=== PATIENT | male | born 1945 | race Caucasian/White ===

== ENCOUNTER → 2016-10-22 | Outpatient (CLI) | payer MEDICARE, OTHER | DX: I20.9 Angina pectoris, unspecified (principal); I35.8 Other nonrheumatic aortic valve disorders; I34.8 Other nonrheumatic mitral valve disorders | CPT/HCPCS: ECHO; 78452; 93017; 93306; A9502; J2785 ==

== ENCOUNTER → 2021-01-06 | Outpatient (CLI) | payer MEDICARE, OTHER ==
[~2021-01-06] MED LIST: ALLOPURINOL100 MG PO; ASPIR-LOW81 MG PO; DITROPAN 5 MG TA5 MG PO; GLUCOSAMINE HC500 MG PO; LIPITOR TAB 1010 MG PO; NAPROXEN500 MG PO; NEURONTIN800 MG PO; PLETAL 100 MG100 MG PO; ULTRAM50 MG PO; VITAMIN D250000 UNIT PO
== END ==
LOC: EXRD 09:36
DX: R91.1 Solitary pulmonary nodule (principal)
CPT/HCPCS: 71046

== ENCOUNTER 2021-04-01 11:17 | Inpatient (IN) | payer MEDICARE, OTHER ==
[~2021-04-01] VITALS: Ht 180.3 cm; Wt 90.7 kg
[~2021-04-01 11:17] MED LIST changes: -LIPITOR TAB 1010 MG PO; -NEURONTIN800 MG PO
[2021-04-01] MEDS ORDERED: DEXAMETHASONE6 MG PO (11:38)
[2021-04-01 12:58] LABS: HEMOGLOBIN 13.2 gm/dl (14.0-17.5); RED BLOOD COUNT 4.46 M/UL (4.20-5.50); WHITE BLOOD COUNT 4.8 K/UL (4.5-11.0)
[2021-04-01 13:21] LABS: BUN/CREATININE RATIO 19 (0-10)
[2021-04-02 04:20] LABS: RED BLOOD COUNT 4.36 M/UL (4.20-5.50)
[2021-04-02 04:26] LABS: WHITE BLOOD COUNT 3.5 K/UL (4.5-11.0)
[2021-04-02 04:42] LABS: BUN/CREATININE RATIO 22 (0-10)
[2021-04-02] MEDS ORDERED: NEURONTIN800 MG PO (06:52)
[2021-04-02] MEDS ORDERED: LIPITOR TAB 1010 MG PO (06:52)
[2021-04-03 02:31] LABS: RED BLOOD COUNT 4.34 M/UL (4.20-5.50)
[2021-04-03 02:32] LABS: WHITE BLOOD COUNT 9.8 K/UL (4.5-11.0)
[2021-04-03 03:12] LABS: BUN/CREATININE RATIO 23 (0-10)
[2021-04-03] MEDS ORDERED: MEDROL4 MG PO (10:06)
== END 2021-04-03 14:49 | disposition home or self-care (01) | DRG 177 ==
LOC: ER1 11:17 → CDU 17:54 → M/S 04-02 13:05
PROVIDERS: Emergency Medicine; ADMIT Internal Medicine
PROC: XW033E5 Introduction of Remdesivir Anti-infective into Peripheral Vein, Percutaneous Approach, New Technology Group 5 (ICD-10-PCS; principal; 2021-04-01)
PROC: 3E0333Z Introduction of Anti-inflammatory into Peripheral Vein, Percutaneous Approach (ICD-10-PCS; 2021-04-01)
PROC: XW033G6 Introduction of REGN-COV2 Monoclonal Antibody into Peripheral Vein, Percutaneous Approach, New Technology Group 6 (ICD-10-PCS; 2021-04-01)
PROC: 8E0ZXY6 Isolation (ICD-10-PCS; 2021-04-01)
DX: U07.1 COVID-19 (principal); J12.82 Pneumonia due to coronavirus disease 2019; T78.2XXA Anaphylactic shock, unspecified, initial encounter; M19.90 Unspecified osteoarthritis, unspecified site; I10 Essential (primary) hypertension; J43.9 Emphysema, unspecified; Z79.82 Long term (current) use of aspirin
CPT/HCPCS: 36415; 36600; 71045; 80048; 80053; 82803; 83690; 83735; 84100; 84132; 85025; 85027; 86140; 94760; 99285; G0378; J0171; J1100; J1200; J1650; J2930; J7030; Q9967; U0002

== ENCOUNTER → 2021-04-16 | Emergency (ER) | payer MEDICARE, OTHER ==
[~2021-04-16] MED LIST changes: +DEXAMETHASONE6 MG PO; +LIPITOR TAB 1010 MG PO; +MEDROL4 MG PO; +NEURONTIN800 MG PO
[2021-04-16 09:27] LABS: HEMOGLOBIN 11.7 gm/dl (14.0-17.5); RED BLOOD COUNT 3.93 M/UL (4.20-5.50); WHITE BLOOD COUNT 6.8 K/UL (4.5-11.0)
[2021-04-16 09:56] LABS: BUN/CREATININE RATIO 12 (0-10)
== END | disposition home or self-care (01) ==
LOC: ER1 08:08
PROVIDERS: Physician Assistant
DX: K92.1 Melena (principal); D64.9 Anemia, unspecified; Z86.73 Personal history of transient ischemic attack (TIA), and cerebral infarction without residual deficits; Z85.3 Personal history of malignant neoplasm of breast
CPT/HCPCS: 80053; 82270; 85025; 85610; 86850; 86900; 86901; 96374; 99283; C9113

== ENCOUNTER → 2021-06-05 | Outpatient (CLI) | payer MEDICARE, OTHER | LOC: RAD 09:00 | DX: D50.9 Iron deficiency anemia, unspecified (principal); R93.3 Abnormal findings on diagnostic imaging of other parts of digestive tract | CPT/HCPCS: 74246; 74248 ==

== ENCOUNTER → 2021-07-02 | Outpatient (CLI) | payer MEDICARE, OTHER | LOC: RAD 09:24 | DX: D50.9 Iron deficiency anemia, unspecified (principal) | CPT/HCPCS: 74018 ==

== ENCOUNTER → 2021-07-27 | Outpatient (CLI) | payer MEDICARE, OTHER ==
[2021-07-27 11:43] LABS: HEMOGLOBIN 13.4 gm/dl (14.0-17.5); RED BLOOD COUNT 5.02 M/UL (4.20-5.50); WHITE BLOOD COUNT 6.7 K/UL (4.5-11.0)
[2021-07-27 12:17] LABS: BUN/CREATININE RATIO 16 (0-10)
== END ==
LOC: LAB 10:44
PROVIDERS: Internal Medicine; Nurse Practitioner Family
DX: E78.5 Hyperlipidemia, unspecified (principal); E55.9 Vitamin D deficiency, unspecified; E53.8 Deficiency of other specified B group vitamins; D50.9 Iron deficiency anemia, unspecified
CPT/HCPCS: 36415; 80053; 80061; 82607; 84439; 84443; 85025

== ENCOUNTER → 2021-11-26 | Outpatient (CLI) | payer MEDICARE, OTHER ==
[2021-11-26 13:44] LABS: RED BLOOD COUNT 4.67 M/UL (4.20-5.50); WHITE BLOOD COUNT 5.4 K/UL (4.5-11.0)
[2021-11-26 14:08] LABS: BUN/CREATININE RATIO 15 (0-10)
== END ==
LOC: LAB 13:17
PROVIDERS: Family Medicine
DX: C61 Malignant neoplasm of prostate (principal); M10.9 Gout, unspecified; E53.8 Deficiency of other specified B group vitamins; E55.9 Vitamin D deficiency, unspecified; E78.5 Hyperlipidemia, unspecified; I10 Essential (primary) hypertension
CPT/HCPCS: 36415; 80053; 80061; 82607; 83735; 84153; 84550; 85027